=== PATIENT | female | born 1940 | race Caucasian/White ===

== ENCOUNTER 2023-07-27 20:02 | Emergency (ER) | payer MEDICARE, SELFPAY ==
[2023-07-27 20:03] VITALS: BP 171/92
--- NOTE | 2023-07-28 00:08 | ED.GENMED ---
History of Present Illness
General
Chief Complaint: Musculo-Skeletal Complaint
Source: patient
Exam Limitations: none
Time Seen by Provider: 07/27/23 23:41
Nursing documentation reviewed up to this point in time: agreed with
Travel History
Have you had any contact with someone who has COVID-19?: No
Do you have any symptoms of coronavirus? Fever > 100 degrees, chills, cough, shortness of breath, sore throat, loss of taste or smell, muscle aches, or headache?: No
History of Present Illness
History of Present Illness:
Patient presents to ED secondary to persistent left-sided rib pain and left shoulder pain, after she tripped and fell this afternoon. Denies any other injuries from the fall. Denies neck pain. Denies headache. Denies loss of sensation or
weakness. Patient reports pain with movement and or breathing. Denies difficulty with urination. Denies abdominal pain. Denies nausea or vomiting. Denies difficulty with ambulation. Patient does not take any blood thinning medication
Past History
Past History
ED Past Medical History: CAD, GERD, HTN, Hypercholesterolemia, [place], Psychiatric (Anxiety, Depression) and Other (Sleep apnea, Peritonitis, renal calclulus, Arthritis, )
ED Past Surgical History: Appendectomy, Cardiac (Stent X 4, Angioplasty), Gynecological (Tubal), Orthopedic (laminectomy) and Other (Noncontributory )
Social History
Tobacco: Non-smoker
Alcohol: None
Drug: None
Personal:
Living: alone
Employment: Employed
Family History
Family History: Other (Noncontributory )
Review of Systems
Review of Systems
Allergies reviewed?: Yes
All Other Systems: ROS reviewed and negative except as documented in HPI and ROS
Constitutional: Reports no symptoms
Musculoskeletal: Reports back pain and other (Rib pain)
Skin: Reports no symptoms
Neurological: Reports no symptoms
Phy Exam
Physical Exam
Physical Exam:
Physical Exam
General: mild painful distress, not acutely ill. afebrile
Head: nc/at. eomi
Neck: supple. normal range of motion.
Heart: s1/s2 regular rate and rhythm, no murmur. equal radial pulses.
Lungs: no acute respiratory distress. clear bilaterally
Abdomen: normal bowel sounds. not tender.
Neuro: alert and oriented. no focal neurological deficits
Skin: ecchymosis noted over left midback/flank with tenderness to palpation.
Psychiatric: well kept. interactive and cooperative
Extremities: no edema. no calf tenderness.
Course
Orders/Labs/Results
Orders:
Orders
07/27/23 20:08
CR Shoulder, Trauma - Left Urgent
Comment:
Reason For Exam: fall
Ribs, Left 3 View W/PA Chest CR [CR Ribs-left 3 Vw W/pa Chest] Urgent
Comment:
Reason For Exam: fall
07/28/23 00:08
Acetaminophen [Tylenol] 1,000 mg PO NOW STA
Incentive Spirometry [Rx Incentive Spirometry] [RESP] Urgent
Frequency: q1h while awake
07/28/23 00:26
Urinalysis Reflex To Culture Urgent
Date Specimen was Collected: 07/28/23
Time Specimen was Collected: 00:25
Vital Signs
Initial and Last Documented VS:
Initial Vital Signs
Temp Pulse Resp BP Pulse Ox
99.2 F 70 16 171/92 97
07/27/23 20:03 07/27/23 20:03 07/27/23 20:03 07/27/23 20:03 07/27/23 20:03
Last Documented Vital Signs
Temp Pulse Resp BP Pulse Ox
99.2 F 72 20 137/78 96
07/27/23 20:03 07/28/23 01:08 07/28/23 01:08 07/28/23 01:08 05/30/24 01:08
MDM/Problems Addressed
MDM/Problems Addressed:
X-ray of ribs and shoulder without any acute abnormalities.
History exam concerning for likely contusion versus strain. Patient advised to follow-up with PCP for reevaluation next week. Patient given incentive spirometer to be used at home.
Patient otherwise is afebrile, hemodynamically stable, and without any acute distress, at time of discharge to the care of her family.
*Critical Care Note
Total Time (30-74mins, 75-104mins- exclusive of procedures): Not Applicable
ED Attending Note
-
Portions of this chart may have been created with voice recognition software.� Occasional wrong word or��sound alike� substitutions may have occurred due to the inherent limitations of voice recognition software.
Discharge Plan
Departure
Patient Disposition: Home (Routine Discharge)
Date of Disposition: 07/28/23
Time of Disposition: 00:21
Patient with high blood pressure during this ER visit?: Yes
Discharge Problem:
Contusion
Instructions: How to Use an Incentive Spirometer, Contusion (DC)
Prescriptions:
No Action
amlodipine [Norvasc] 5 MG tablet
2.5 mg PO HS
aspirin [Aspir-Low] 81 MG tablet,delayed release (DR/EC)
81 mg PO DAILY
meclizine 25 MG tablet
25 mg PO DAILY PRN (Reason: dizziness)
rosuvastatin [Crestor] 5 MG tablet
5 mg PO HS
metoprolol tartrate 25 MG tablet
25 mg PO BID
valsartan 40 mg Tablet
40 mg PO DAILY
Referrals:
Ottoniel Quinonez DO [Family Provider] -
Activity Restrictions/Additional Instructions:
As discussed, please follow-up with your primary care physician for reevaluation, or return to ED with worsening symptoms.
Interventions
Interventions:
*Risk Screen - Suicide Last Done: 07/27/23 20:03
*General Assessment Last Done: 07/27/23 20:03
*Neglect/Abuse Screening Last Done: 07/27/23 20:03
ED- Fall Risk Assessment Last Done: 07/28/23 01:03
*ED COVID-19 Vaccine History Last Done: 07/28/23 01:09
*Nursing Disposition Last Done: 07/28/23 01:09
ED-Musculoskeletal Assessment Last Done: 07/28/23 01:03
Discharge Date and Time
Discharge Date/Time: 07/28/23 01:17
Print Language: HEBREW
[2023-07-28] MEDS: TYLENOL 1000 MG PO (00:16)
[2023-07-28 00:41] LABS: Urine Albumin Negative (Neg - Trace); Urine Bilirubin Negative (Negative); Urine Character Clear (Clear); Urine Color Yellow; Urine Glucose Negative (Negative); Urine Ketone Negative (Negative); Urine Leukocyte Negative (Negative); Urine Nitrite Negative (Negative); Urine Occult Blood Negative (Negative); Urine Specific Gravity 1.015 (<1.030); Urine Urobilinogen Negative (Neg - 1+)
[2023-07-28 01:08] VITALS: BP 137/78
== END 2023-07-28 01:17 | disposition home or self-care (01) ==
LOC: EMR 20:02
PROVIDERS: EMERGENCY PHYSICIAN Emergency Medicine; FAMILY PHYSICIAN Family Medicine
DX: S20.222A Contusion of left back wall of thorax, initial encounter (principal); R07.81 Pleurodynia; W01.0XXA Fall on same level from slipping, tripping and stumbling without subsequent striking against object, initial encounter; I10 Essential (primary) hypertension
CPT/HCPCS: 99283; 71101; 73030; 81003